=== PATIENT | female | born 1975 | race Caucasian/White ===

== ENCOUNTER 2019-01-16 10:47 | Outpatient (CLI) | payer BC, SELFPAY ==
--- NOTE | 2019-01-16 16:17 | DI.RAD_ITS ---
SYMPTOM/DIAGNOSIS: RT KNEE PAIN, M25/561 RIGHT KNEE: Four views. No acute fracture or dislocation is seen. The articular surfaces are well maintained. There is an enthesophyte seen at the superior aspect of the patella. The bones are normally mineralized. Soft tissues are unremarkable. IMPRESSION: No acute abnormality.
== END 2019-01-16 11:07 ==
PROVIDERS: PCP Nurse Practitioner Family; Visit Provider Nurse Practitioner Family
DX: M25.561 Pain in right knee (principal)
CPT/HCPCS: 73564